=== PATIENT | female | born 1945 | race Caucasian/White ===

== ENCOUNTER 2021-01-15 18:15 | Observation (INO) | payer MEDICARE ==
[2021-01-15 19:57] LABS: INFLUENZA A NEGATIVE (NEGATIVE); INFLUENZA B NEGATIVE (NEGATIVE); RESPIRATORY SYNCTIAL VIRUS NEGATIVE (Negative)
[2021-01-15] MEDS ORDERED: Lantus Insulin SQ SCH (22:00)
[2021-01-15] MEDS ORDERED: ENOXAPARIN SODIUM SQ SCH (22:00)
[2021-01-15] MEDS ORDERED: HUMALOG SQ PRN (22:00)
[2021-01-15] MEDS ORDERED: ZOCOR 20MG ONE (22:15)
[2021-01-15 22:35] LABS: Absolute Neutrophil Ct (ANC) 3.62 (1.4-6.9); Basophil (Absolute #) 0 (0-0.4); Eosinophil % 0.2 % (0.00-5.0); Eosinophil (Absolute #) 0.01 (0-0.5); Hematocrit 28.3 % (35-47); Hemoglobin 8.9 gm/dl (12.0-16.0); Lymphocyte (Absolute #) 1.18 (1.0-4.6); Lymphocytes % 22.8 % (24.0-44.0); Mean Cell Volume 90.4 fl (78-100); Mean Corpuscular Hemoglobin 28.4 pg (26-32); Mean Corpuscular Hgb Concent. 31.4 g/dl (32-36); Mean Platelet Volume 9.1 fl (7.5-11.0); Monocyte (Absolute #) 0.37 (0.0-1.3); Monocytes % 7.1 % (0.0-12.0); Neutrophil % 69.9 % (36.0-66.0); Platelet Count 117 K/mm3 (150-450); Red Blood Count 3.13 M/mm3 (4.1-5.4); Red Cell Distribution Width 13.9 % (11.5-14.0); White Blood Count 5.2 K/mm3 (4.0-10.5)
[2021-01-15] MEDS: Neurontin 400 MG PO SCH (22:36)
[2021-01-15] MEDS: ULTRAM 50 MG PO SCH (22:37)
[2021-01-15] MEDS: FOLATE 1 MG PO SCH (22:37)
[2021-01-15 22:54] LABS: INR 1.11 (0.8-3.0); PROTIME 12.6 SECONDS (9.95-12.35)
[2021-01-15 22:57] LABS: PTT 29.3 SECONDS (25.3-37.0)
--- NOTE | 2021-01-16 08:37 | XRAY ---
Indication: Right chest pain, cough, and short of breath. Elevated d-dimer. Comparison: December 09, 2018. PA/lateral chest demonstrates new large right perihilar masslike opacity detailed on CT chest one day earlier. Remaining heart and left lung unremarkable with new incidental right Port-A-Cath. Bony thorax intact.
[2021-01-16 08:42] VITALS: BP 194/84; PULSE 100; O2SAT 97
--- NOTE | 2021-01-16 08:58 | XRAY ---
Indication: Chest pain, short of breath, and elevated d-dimer. Comparison: None. Patient received 5.6 mCi technetium 99 MAA for the perfusion portion of the exam. Patient inhaled 35.6 mCi of aerosolized technetium 99 DTPA for the ventilation portion. Multiple planar images obtained. Perfusion images demonstrate large right perihilar perfusion defect. Left lung demonstrates homogeneous radiopharmaceutical activity without segmental/subsegmental perfusion defect. Ventilation images demonstrate large right perihilar ventilation defect. Remaining lungs demonstrate homogeneous radiopharmaceutical activity. Impression: Large right perihilar matched ventilation perfusion defect corresponding to CT proven mass. PIOPED criteria for diagnosis of pulmonary embolus is low probability.
[2021-01-16] MEDS: Neurontin 400 MG PO SCH (09:38)
[2021-01-16] MEDS: ULTRAM 50 MG PO SCH (09:38)
[2021-01-16] MEDS: FOLATE 1 MG PO SCH (09:38)
[2021-01-16] MEDS ORDERED: ENOXAPARIN SODIUM SQ SCH (22:00)
[2021-01-16] MEDS ORDERED: ZOCOR 20MG PO SCH ×2 (22:00)
--- NOTE | 2021-02-14 11:47 | PCM.SSS ---
History of Present Illness - Chief Complaint Chief Complaint: Dyspnea Date: 01/16/21 History of Present Illness: is a 75 year old female. Presented to office yesterday with complaints of increased sob for the past few days, pt. was noted to be hypoxice with cough, pt. is also known to have lung ca, if was felt she should be admitted for further evaluation. - Review of Systems Constitutional: No Fever, No Chills Eyes: No Symptoms Ears, Nose, & Throat: No Symptoms Respiratory: Cough, Short Of Breath Cardiac: No Chest Pain, No Edema, No Syncope Abdominal/Gastrointestinal: No Abdominal Pain, No Nausea, No Vomiting, No Diarrhea Genitourinary Symptoms: No Dysuria Musculoskeletal: No Back Pain, No Neck Pain Skin: No Rash Neurological: No Dizziness, No Focal Weakness, No Sensory Changes Psychological: No Symptoms Endocrine: No Symptoms Hematologic/Lymphatic: No Symptoms Immunological/Allergic: No Symptoms Medications & Allergies Home Medications: Home Medication List Amlodipine Besylate 10 mg [Norvasc 10 MG] 5 mg PO DAILY 03/21/12 [History Co nfirmed 01/15/21] Insulin Aspart [NovoLOG Insulin] 0 unit SQ BID 03/21/12 [History Confirmed 01/15/21] Insulin Glargine [Lantus Insulin] 15 unit SQ DAILY 03/21/12 [History Confirmed 01/15/21] Pravastatin Sodium [Pravachol] 80 mg PO HS 06/23/15 [History Confirmed 01/15/21] Folic Acid 1 mg PO BID 11/23/15 [History Confirmed 01/15/21] Gabapentin 800 mg PO TID 11/23/15 [History Confirmed 01/15/21] Omeprazole 20 mg PO DAILY 11/23/15 [History Confirmed 01/15/21] lisinopriL [Lisinopril] 5 mg PO DAILY 11/23/15 [History Confirmed 01/15/21] Albuterol 17 gm IH BID 01/15/21 [History Confirmed 01/15/21] Cyanocobalamin (Vitamin B-12) [Vitamin B-12] 1,000 mcg PO DAILY 01/15/21 [History Confirmed 01/15/21] Insulin Glargine [Lantus Insulin] 10 units SQ HS 01/15/21 [History Confirmed 01/15/21] Pyridoxine HCl (Vitamin B6) [Vitamin B-6] 100 mg PO DAILY 01/15/21 [History Confirmed 01/15/21] Tramadol HCl 50 mg [Ultram 50 mg] 50 mg PO TID 01/15/21 [History Confirmed 01/15/21] Venlafaxine HCl [Venlafaxine HCl ER] 75 mg PO DAILY 01/15/21 [History Confirmed 01/15/21] Allergies/Adverse Reactions: Allergies Allergy/AdvReac Type Severity Reaction Status Date / Time calcium [Calcium] Allergy Rash Verified 01/15/21 20:50 Penicillins Allergy Rash Verified 11/23/15 17:45 Sulfa (Sulfonamide Allergy Hives Verified 11/23/15 17:45 Antibiotics) [Sulfa(Sulfonamide Antibiotics)] - Past Medical History Past Medical History: Yes Neurological History: No Pertinent History ENT History: No Pertinent History Cardiac History: High Cholesterol, Hypertension, Myocardial Infarction (DE) Respiratory History: Other (lung cancer) Endocrine Medical History: Diabetes Type I Musculoskelatal History: Arthritis GI Medical History: Gallbladder Disease History: No Pertinent History Pyscho-Social History: No Pertinent History Reproductive Disorders: Abnormal Uterine Bleeding Comment: O.A. 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 SHE HAS HAD SURGERY TO DECREASE SPINAL STENOSIS AND PAIN HOWEVER IT HASN'T WORKED WELL FOR HER. - Past Surgical History Past Surgical History: Yes Neuro Surgical History: No Pertinent History Cardiac History: Cardiac Catheterization Respiratory Surgery: No Pertinent History GI Surgical History: Cholecystectomy Genitourinary Surgical Hx: No Pertinent History Musculskeletal Surgical Hx: No Pertinent History, Orthopedic Surgery Female Surgical History: Section, Hysterectomy - Social History Smoking Status: Never smoker Exposure to second hand smoke: No Alcohol: None Drug Use: none - Physical Exam General Appearance: no apparent distress, alert Neurologic Exam: alert, oriented x 3, cooperative, normal mood/affect, nml cerebellar function, nml station & gait, sensation nml, No motor deficits Eye Exam: PERRL/EOMI, eyes nml inspection Ears, Nose, Throat Exam: normal ENT inspection, TMs normal, pharynx normal, moist mucous membranes Neck Exam: normal inspection, non-tender, supple, full range of motion Respiratory Exam: diminished breath sounds, prolonged expirations, No respiratory distress Cardiovascular Exam: regular rate/rhythm, normal heart sounds, normal peripheral pulses Gastrointestinal/Abdomen Exam: soft, normal bowel sounds, No tenderness, No mass Back Exam: normal inspection, normal range of motion, No CVA tenderness, No vertebral tenderness Extremity Exam: normal inspection, normal range of motion, pelvis stable Skin Exam: normal color, warm, dry, No rash Lymphatic Exam: No adenopathy Assessment/Plan (1) Acute asthmatic bronchitis Status: Acute Code(s): J45.909 - UNSPECIFIED ASTHMA, UNCOMPLICATED (2) D-dimer, elevated Status: Acute Assessment & Plan: CT ordered for evaluation of possible PE Code(s): R79.89 - OTHER SPECIFIED ABNORMAL FINDINGS OF BLOOD CHEMISTRY Hospital Summary - Hospital Course Hospital Course: Pt. admitted and started on appropriate medications, CTA negative for PE, the following am pt. was feeling better, back to her baseline and she felt she was ready to go home. - Lab Result Diagrams: 01/15/21 22:25 - Discharge Discharge Date: 01/16/21 Disposition: Home, Self-Care Prescriptions: Continue Insulin Aspart [NovoLOG Insulin] 0 unit SQ BID Amlodipine Besylate 10 mg [Norvasc 10 MG] 5 mg PO DAILY Insulin Glargine [Lantus Insulin] 15 unit SQ DAILY Pravastatin Sodium [Pravachol] 80 mg PO HS lisinopriL [Lisinopril] 5 mg PO DAILY Omeprazole 20 mg PO DAILY Gabapentin 800 mg PO TID Folic Acid 1 mg PO BID Pyridoxine HCl (Vitamin B6) [Vitamin B-6] 100 mg PO DAILY Albuterol 17 gm IH BID Venlafaxine HCl [Venlafaxine HCl ER] 75 mg PO DAILY Cyanocobalamin (Vitamin B-12) [Vitamin B-12] 1,000 mcg PO DAILY Tramadol HCl 50 mg [Ultram 50 mg] 50 mg PO TID Insulin Glargine [Lantus Insulin] 10 units SQ HS Instructions: Shortness of Breath (Dyspnea) (DC) Additional Instructions: CONTINUE ALL HOME MEDICATIONS PLUS THE NEW ONES DR. AGUILAR CALLED IN TO YOUR PHARMACY YESTERDAY. Follow up with: IRINEO AGUILAR MD [Primary Care Provider] - 01/22/21 10:15 am Forms: Discharge Instructions
== END 2021-01-16 10:52 | disposition home or self-care (01) ==
LOC: INTOOBSV 18:15 → UNDOADMOB 18:15 → MED SURG 18:15 → OBSVTOIN 18:15
PROVIDERS: ADMIT Family Medicine; ATTEND Family Medicine
DX: J45.909 Unspecified asthma, uncomplicated (principal); R79.89 Other specified abnormal findings of blood chemistry; Z79.899 Other long term (current) drug therapy; Z20.828 Contact with and (suspected) exposure to other viral communicable diseases; E78.5 Hyperlipidemia, unspecified; G62.9 Polyneuropathy, unspecified; K21.9 Gastro-esophageal reflux disease without esophagitis; F41.8 Other specified anxiety disorders; E11.9 Type 2 diabetes mellitus without complications; E78.00 Pure hypercholesterolemia, unspecified
CPT/HCPCS: 0241U; 36415; 36591; 71046; 71250; 78582; 80053; 80061; 82947; 83036; 83721; 84484; 85025; 85379; 85610; 85730; 93005; A9540; A9567; G0378; J1642; J1650; A9270-GY

== ENCOUNTER 2021-11-17 05:55 | Day surgery (SDC) | payer MEDICARE ==
[2021-11-17] MEDS ORDERED: Lactated Ringers 1,000 ML IV ONE (06:52)
[2021-11-17] MEDS ORDERED: Lactated Ringers 1,000 ML IV SCH (07:00)
[2021-11-17] MEDS ORDERED: Sodium Chloride 0.9% 10 ML FLUSH Syringe PORT FLUSH PRN (07:13)
[2021-11-17] MEDS ORDERED: DIPRIVAN 200 MG/20 ML IV ONE ×2 (07:32→07:57)
[2021-11-17 08:37] VITALS: PULSE 78; O2SAT 96
[2021-11-17 08:55] VITALS: BP 180/95
--- NOTE | 2021-11-17 11:39 | OP ---
SURGERY DATE/TIME: 11/17/2021 8930 PREOPERATIVE DIAGNOSIS: Anemia. POSTOPERATIVE DIAGNOSES: 1) Normal EGD. 2) Normal colonoscopy. PROCEDURES: 1) Esophagogastroduodenoscopy. 2) Colonoscopy. SURGEON: Dr. Fernandez. ANESTHESIA: Medications were given by the anesthesia department. HISTORY: The patient is a 76-year-old white female presenting now for endoscopic evaluation for anemia. The patient was appraised of the risks of the procedure including the risk of perforation, phlebitis, untoward reaction to medication, bleeding and missed lesions. The patient verbalized her understanding and desired to have the procedure performed. DESCRIPTION OF PROCEDURE: The patient was given the medications by the anesthesia department. She had continuous pulse oximetry, ECG monitoring and intermittent blood pressure monitoring during the examination. She was placed in the left lateral decubitus position. A bite block was placed and the flexible Olympus gastroscope was used to intubate the oropharynx. A view of the larynx was obtained and was normal. The scope was introduced in the esophagus which appeared to be essentially normal throughout its length. The stomach was entered where normal gastric rugal folds were seen and these distended nicely with insufflation of air. The scope was passed along the greater curvature of the stomach to the antrum. The pylorus encountered and intubated. Duodenum inspected and found to be normal. The scope is withdrawn towards the stomach. Again, a retroflex view was obtained of lesser curvature of fundus and cardia region of the stomach and these appeared to be essentially normal. The scope was then withdrawn from the stomach. Careful inspection of the esophagus on withdrawal and no mucosal lesions were encountered. The scope was removed from the patient. Next, a digital rectal examination was performed and revealed normal anal sphincter tone and no masses. Hemorrhoids were present. The flexible Olympus pediatric colonoscope was used to intubate the rectum. A view of the colon was developed sequentially to the cecum. Upon insertion and withdrawal, including a retroflex view in the rectum, no mucosal lesions were encountered other than the hemorrhoids. The scope was removed from the patient who tolerated the procedure well and was sent back to OP recovery in good condition. The prep was noted to be fair to poor.
== END 2021-11-17 09:00 | disposition home or self-care (01) ==
LOC: SDC 05:55 → EDSTATUS 07:34 → SDC 09:00
PROVIDERS: ATTEND Family Medicine
DX: D64.9 Anemia, unspecified (principal); E11.9 Type 2 diabetes mellitus without complications; Z79.899 Other long term (current) drug therapy
CPT/HCPCS: 82947; 93005; 99100; J1642; J2704